=== PATIENT | female | born 1990 | race Hispanic/Latino ===

== ENCOUNTER 2021-09-21 08:41 | Inpatient (IN) | payer SELFPAY ==
[2021-09-21] MEDS ORDERED: SODIUM CHLORIDE 0.9% 1000 ML 1,000 ML IV ONE ×2 (08:53→21:51)
--- NOTE | 2021-09-21 08:56 | Emergency Department Report ---
ED N/V/D HPI - General Chief complaint: Nausea/Vomiting/Diarrhea Stated complaint: N/V,ABD PAIN,BLOOD SUGAR HIGH Time Seen by Provider: 09/21/21 08:52 Source: EMS Mode of arrival: Stretcher Limitations: No Limitations - History of Present Illness Initial comments: Patient presents by ambulance with nausea and vomiting. Her sugars have been out of control. She believes that she has DKA. EMS was called because of nausea and vomiting with elevated blood sugar. They arrived on scene and the patient did have a trash can field with yellow emesis. She was dry heaving. They got an Accu-Chek initially of 270 and then 570. Patient apparently was admitted at a hospital in [place] with DKA on 10 September. Patient states that this feels like DKA. She has no chest pain. There is no back pain. There is no hematemesis or coffee-ground emesis. - Related Data Allergies Allergy/AdvReac Type Severity Reaction Status Date / Time No Known Allergies Allergy Verified 09/21/21 08:44 ED Review of Systems ROS: Stated complaint: N/V,ABD PAIN,BLOOD SUGAR HIGH Other details as noted in HPI ED Physical Exam - General Limitations: No Limitations ED Course Vital Signs 09/21/21 08:42 Pulse Rate 60 Blood Pressure 140/80 [Left] O2 Sat by Pulse 97 Oximetry - Reevaluation(s) Reevaluation #1: 09/21/21 08:50 EMS was met upon arrival. IV and labs were ordered. Accu-Chek was ordered. Patient likely has DKA. Old records reviewed. Reevaluation #2: 09/21/21 11:25 Labs are noted. Insulin drip was started. Dr. St was notified for admission. ED Medical Decision Making - Lab Data Result diagrams: 09/21/21 09:38 09/21/21 09:38 Rhythm strip: Sinus tachycardia without ectopy. Monitor observe 10 seconds. - Medical Decision Making Patient presents with altered mental status, nausea, vomiting, and concern for DKA. She does have a known history of diabetes and had a recent admission in a different state for DKA. She was hyperglycemic. She was acidotic. There was a large anion gap. This is consistent with DKA. She has been aggressively treated. She will undergo admission. She does have hyperkalemia with an acute kidney injury. Critical Care Time: Yes (45 minutes exclusive of all procedures) Critical care attestation.: If time is entered above; I have spent that time in minutes in the direct care of this critically ill patient, excluding procedure time. ED Disposition Clinical Impression: AMARJIT (acute kidney injury) DKA (diabetic ketoacidosis) Qualifiers: Diabetes mellitus type: type 1 Nausea & vomiting Qualifiers: Vomiting type: unspecified Qualified Code(s): R11.2 - Nausea with vomiting, unspecified Disposition: 09 ADMITTED INPATIENT Is pt being admited?: Yes Condition: Stable Instructions: Diabetic Ketoacidosis (ED)
[2021-09-21 10:38] LABS: Mean Corpuscular HGB Conc 29 % (30-34); Mean Corpuscular Volume 84 fl (79-97); Platelet Count 276 K/mm3 (140-440); Red Blood Count 5.96 M/mm3 (3.65-5.03); Red Cell Distribution Width 18.2 % (13.2-15.2)
[2021-09-21 10:40] LABS: Hematocrit 50.3 % (30.3-42.9); Hemoglobin 14.4 gm/dl (10.1-14.3)
[2021-09-21 10:57] LABS: Calcium 9.4 mg/dL (8.4-10.2)
[2021-09-21] MEDS ORDERED: ALBUTEROL 2.5 MG/3 ML NEBU IH ONE (11:02)
[2021-09-21] MEDS ORDERED: DEXTROSE 50% IN WATER (25GM) 50 ML SYRINGE IV PRN (11:24)
[2021-09-21] MEDS ORDERED: INSULIN REGULAR, HUMAN 100 UNITS in SODIUM CHLORIDE 0.9% 99 ML IV SCH (12:00)
[2021-09-21 12:20] LABS: Band Neutrophils # (Manual) 0.2 K/mm3; Basophils % (Manual) 0 % (0.0-1.8); Platelet Estimate Consistent w Auto; RBC Morphology Normal; Total Cells Counted 100
[2021-09-21] MEDS ORDERED: fentaNYL 100 MCG/2 ML INJ IV ONE (12:22)
--- NOTE | 2021-09-21 12:46 | History and Physical Report ---
History of Present Illness Chief complaint: I do not feel good History of present illness: 31 YO Female with DM, Medication Noncompliance presents to ED for evaluation. Patient reports "I feel sick". Patient has dementia And provides minimal history. Patient reports that she has experienced nausea, multiple episodes of vomiting, diminished oral intake over the past 2 days, loss of sense of smell, loss of sense of taste, body aches, as well as known exposure to COVID-19. Patient acknowledges shortness of breath. EMS was notified and upon arrival the patient was found to be in distress and subsequent transported outside further care and evaluation of the aforementioned symptoms. The patient was seen and ev aluated in the emergency department. All lab and imaging studies reviewed. The patient was found to have DKA, sepsis suspected secondary to coronavirus infection. Patient admitted to ICU and initiated on DKA protocol as well as sepsis protocol and coronavirus protocol. Patient denies body aches, but denies chest pain, palpitation, productive cough, skin rash, recent ill contacts. No prior admission for review. No medication listed at time of admission for reconciliation. Advanced care planning conducted in ED. Patient is not vaccinated against COVID-19. Past History Past Medical History: diabetes, other (See HPI) Past Surgical History: No surgical history, Other (Reviewed) Social history: single. denies: smoking, alcohol abuse, prescription drug abuse Family history: hypertension Medications and Allergies Allergies Allergy/AdvReac Type Severity Reaction Status Date / Time No Known Allergies Allergy Verified 09/21/21 08:44 Active Meds: Active Medications Dextrose (Dextrose 50% In Water (25gm) 50 Ml Syringe) 0 ml IV Q30MIN PRN; Protocol PRN Reason: Hypoglycemia Insulin Human Regular 100 (units/ Sodium Chloride) 100 mls @ 1 mls/hr IV TITR BLANK; Protocol Review of Systems ROS unobtainable: due to mental status Exam - Constitutional Vitals: Temp Pulse Resp BP Pulse Ox 60 140/80 97 09/21/21 08:42 09/21/21 08:42 09/21/21 08:42 General appearance: Present: mild distress - EENT Eyes: Present: PERRL ENT: hearing intact, clear oral mucosa, other (Oral mucosa dry) - Neck Neck: Present: supple, normal ROM - Respiratory Respiratory effort: labored Respiratory: bilateral: diminished - Cardiovascular Rhythm: other (Tachycardia) Heart Sounds: Present: S1 & S2. Absent: rub, click - Extremities Extremities: pulses symmetrical, No edema Peripheral Pulses: abnormal (Capillary refill greater than 3.5 seconds) - Abdominal General gastrointestinal: Present: soft, non-tender, non-distended, normal bowel sounds Female genitourinary: Present: normal - Integumentary Integumentary: Present: dry, clammy, decreased turgor - Musculoskeletal Musculoskeletal: generalized weakness - Psychiatric Psychiatric: no appropriate mood/affect, no intact judgment & insight - Neurologic Neurologic: CNII-XII intact, moves all extremities, no gait normal Results - Labs CBC & Chem 7: 09/21/21 09:38 09/21/21 13:05 Labs: Abnormal lab results 09/21/21 09/21/21 09/21/21 Range/Units 09:38 09:38 09:38 WBC 24.6 H (4.5-11.0) K/mm3 RBC 5.96 H (3.65-5.03) M/mm3 Hgb 14.4 H (10.1-14.3) gm/dl Hct 50.3 H (30.3-42.9) % MCH 24 L (28-32) pg MCHC 29 L (30-34) % RDW 18.2 H (13.2-15.2) % Seg Neuts % (Manual) 86.0 H (40.0-70.0) % Lymphocytes % (Manual) 10.0 L (13.4-35.0) % Seg Neutrophils # Man 21.2 H (1.8-7.7) K/mm3 VBG pH 7.003 L* (7.320-7.420) Sodium 128 L (137-145) mmol/L Potassium 6.0 H (3.6-5.0) mmol/L Chloride 81.9 L (98-107) mmol/L Carbon Dioxide 5 L* (22-30) mmol/L BUN 37 H (7-17) mg/dL Creatinine 1.4 H (0.6-1.2) mg/dL Glucose 733 H* (65-100) mg/dL POC Glucose (70-105) mg/dL 09/21/21 Range/Units 12:19 WBC (4.5-11.0) K/mm3 RBC (3.65-5.03) M/mm3 Hgb (10.1-14.3) gm/dl Hct (30.3-42.9) % MCH (28-32) pg MCHC (30-34) % RDW (13.2-15.2) % Seg Neuts % (Manual) (40.0-70.0) % Lymphocytes % (Manual) (13.4-35.0) % Seg Neutrophils # Man (1.8-7.7) K/mm3 VBG pH (7.320-7.420) Sodium (137-145) mmol/L Potassium (3.6-5.0) mmol/L Chloride (98-107) mmol/L Carbon Dioxide (22-30) mmol/L BUN (7-17) mg/dL Creatinine (0.6-1.2) mg/dL Glucose (65-100) mg/dL POC Glucose > 600 H (70-105) mg/dL Assessment and Plan - Patient Problems (1) Sepsis Current Visit: Yes Status: Acute Plan to address problem: Sepsis protocol: CBC, CMP, IV fluid resuscitation therapy, IV antibiotic therapy, supplemental oxygen, pulse oximetry, maintain mean arterial pressure greater than or equal to 65, monitor fluid balance, chest x-ray, blood cultures, (2) Suspected 2019 novel coronavirus infection Current Visit: Yes Status: Acute Plan to address problem: Coronavirus protocol: Vitamin C therapy, vitamin D therapy, zinc therapy, IV antibiotic therapy, IV steroid therapy (3) COVID-19 vaccination not done Current Visit: Yes Status: Acute Plan to address problem: Patient counseled. (4) AMARJIT (acute kidney injury) Current Visit: Yes Status: Acute Plan to address problem: BMP, IV fluid resuscitation therapy, repeat BMP in a.m. to monitor serum creatinine as well as GFR. (5) DKA (diabetic ketoacidosis) Current Visit: Yes Status: Acute Qualifiers: Diabetes mellitus type: type 1 Plan to address problem: DKA protocol: IV fluid resuscitation therapy, insulin drip, serial BMP, monitor anion gap, potassium repletion as per protocol: Monitor fluid balance. (6) Toxic metabolic encephalopathy Current Visit: Yes Status: Acute Plan to address problem: Treat sepsis, IV fluid resuscitation therapy, supportive care. (7) DVT prophylaxis Current Visit: Yes Status: Acute Plan to address problem: SCD to bilateral lower extremities while in bed, prophylactic anticoagulation (8) Advance care planning Current Visit: Yes Status: Acute Plan to address problem: Disease education conducted, care plan discussed, diagnosis discussed, prognosis discussed. Patient is full code, +30 minutes.
[2021-09-21] MEDS ORDERED: SODIUM CHLORIDE 0.9% 1000 ML 1,000 ML IV SCH (13:00)
--- NOTE | 2021-09-21 13:28 | XRay Report ---
CHEST 1 VIEW 09/21/2021 12:54 PM INDICATION / CLINICAL INFORMATION: Cough. COMPARISON: None available. FINDINGS: SUPPORT DEVICES: None. HEART / MEDIASTINUM: The heart size and pulmonary vasculature are normal. LUNGS / PLEURA: No significant pulmonary or pleural abnormality. No pneumothorax. ADDITIONAL FINDINGS: No significant additional findings. IMPRESSION: No acute findings. Signer Name: Dada Moreland MD Signed: 09/21/2021 1:23 PM Workstation Name: [id number]
[2021-09-21] MEDS ORDERED: SODIUM BICARB 8.4% 50 MEQ/50 ML SYRINGE IV NR (13:30)
[2021-09-21] MEDS ORDERED: HYDROmorphone 1 MG/1 ML INJ IV PRN (13:30)
[2021-09-21] MEDS ORDERED: oxyCODONE /ACETAMINOPHEN 5-325MG TAB PO PRN (13:30)
[2021-09-21] MEDS ORDERED: SODIUM CHLORIDE 0.9% 1000 ML IV SOLN IV NR (13:30)
[2021-09-21] MEDS ORDERED: ACETAMINOPHEN 325 MG TAB PO PRN ×2 (14:00)
[2021-09-21 14:06] LABS: Calcium 7.9 mg/dL (8.4-10.2)
[2021-09-21] MEDS: methylPREDNISolone Sod Succinate 40 MG/1 ML INJ IV SCH ×2 (15:17→23:34)
[2021-09-21] MEDS: cefTRIAXone/NS 2 GM/100 ML 2 GM/100 ML BAG IV SCH (15:18)
[2021-09-21] MEDS: AZITHROMYCIN/NS 500 MG/250 ML 500 MG/250 ML BAG IV SCH (15:18)
[2021-09-21 16:59] LABS: Calcium 7.6 mg/dL (8.4-10.2)
[2021-09-21 17:02] LABS: C-Reactive Protein 0.1 mg/dL (0.00-1.30)
[2021-09-21] MEDS ORDERED: SODIUM BICARB 8.4% 50 MEQ/50 ML SYRINGE IV ONE ×2 (17:09→18:44)
[2021-09-21 19:02] LABS: Calcium 7.5 mg/dL (8.4-10.2)
[2021-09-21 20:38] LABS: Calcium 7.6 mg/dL (8.4-10.2)
[2021-09-21 22:44] LABS: Bacteria,Urine 1+ /HPF (Negative); Bilirubin,Urine NEG (Negative); Blood,Urine SM (Negative); Color,Urine Straw (Yellow); Hyaline Casts,Urine 2 /LPF; Mucus,Urine FEW /HPF; Urobilinogen,Urine < 2.0 mg/dL (<2.0)
[2021-09-21] MEDS ORDERED: methylPREDNISolone Sod Succinate 125 MG/2 ML INJ ONE (23:22)
[2021-09-21] MEDS: HEPARIN 5,000 UNIT/1 ML VIAL SUB-Q SCH (23:33)
[2021-09-21] MEDS: ZINC SULFATE 220 MG CAP PO SCH (23:34)
[2021-09-21] MEDS: ONDANSETRON 4 MG/2 ML INJ IV PRN (23:34)
[2021-09-21] MEDS: ASCORBIC ACID 500 MG TAB PO SCH (23:34)
[2021-09-21] MEDS: HYDROmorphone 1 MG/1 ML INJ IV PRN (23:34)
[2021-09-22] MEDS: D5W/0.45% NACL/KCL 20 MEQ 20 MEQ/1,000 ML BAG IV SCH ×2 (02:29→06:52)
[2021-09-22 06:36] LABS: BUN/Creatinine Ratio 31; Blood Urea Nitrogen 25 mg/dL (7-17); Calcium 7.7 mg/dL (8.4-10.2); Hemolysis Index 3
[2021-09-22] MEDS: methylPREDNISolone Sod Succinate 40 MG/1 ML INJ IV SCH (06:53)
[2021-09-22] MEDS ORDERED: INSULIN GLARGINE 100 UNITS/ML SUB-Q NR (08:39)
[2021-09-22] MEDS ORDERED: DEXTROSE 50% IN WATER (25GM) 50 ML SYRINGE IV PRN (09:00)
[2021-09-22] MEDS: ONDANSETRON 4 MG/2 ML INJ IV PRN (09:13)
[2021-09-22] MEDS ORDERED: METOCLOPRAMIDE 10 MG/2 ML INJ IV PRN (09:30)
[2021-09-22] MEDS: HEPARIN 5,000 UNIT/1 ML VIAL SUB-Q SCH ×2 (10:10→22:49)
[2021-09-22] MEDS: ASCORBIC ACID 500 MG TAB PO SCH ×2 (10:12→23:19)
[2021-09-22] MEDS: ZINC SULFATE 220 MG CAP PO SCH ×2 (10:12→23:19)
[2021-09-22 11:57] LABS: Blood Urea Nitrogen 21 mg/dL (7-17); Hemolysis Index 0
[2021-09-22 12:00] LABS: BUN/Creatinine Ratio 30
[2021-09-22] MEDS: SUCRALFATE 1 GM/10 ML ORAL LIQD PO SCH ×3 (12:05→22:49)
[2021-09-22] MEDS: CHOLECALCIFEROL (VIT D3) 400 UNIT TAB PO SCH (12:53)
[2021-09-22] MEDS: INSULIN LISPRO 100 UNIT/ML SUB-Q SCH ×3 (12:59→23:18)
--- NOTE | 2021-09-22 13:17 | Progress Note ---
Assessment and Plan Assessment and plan: History of present illness: 31 YO Female with DM, Medication Noncompliance presents to ED for evaluation. Patient reports "I feel sick". Patient has dementia And provides minimal history. Patient reports that she has experienced nausea, multiple episodes of vomiting, diminished oral intake over the past 2 days, loss of sense of smell, loss of sense of taste, body aches, as well as known exposure to COVID-19. Patient acknowledges shortness of breath. EMS was notified and upon arrival the patient was found to be in distress and subsequent transported outside further care and evaluation of the aforementioned symptoms. The patient was seen and evaluated in the emergency department. All lab and imaging studies reviewed. The patient was found to have DKA, sepsis suspected secondary to coronavirus infection. Patient admitted to ICU and initiated on DKA protocol as well as sepsis protocol and coronavirus protocol. Patient denies body aches, but denies chest pain, palpitation, productive cough, skin rash, recent ill contacts. No prior admission for review. No medication listed at time of admission for reconciliation. Advanced care planning conducted in ED. Patient is not vaccinated against COVID-19. Hospital Course: 09/22/2021: D/c insulin gtt, start subq insulin. Start diabetic diet. Lantus 15 units qhs initiated, Insulin R 5 units achs, SSI. Added sucralfate and reglan as i suspect patient has gastroparesis. COVID 19 pcr pending- d/c steroids as patient is on room air no indication. Trasnfer to floor Assessment and Plan: (1) Sepsis Current Visit: Yes Status: Acute Plan to address problem: Sepsis protocol: CBC, CMP, IV fluid resuscitation therapy, IV antibiotic therapy, , pulse oximetry, maintain mean arterial pressure greater than or equal to 65, monitor fluid balance, chest x-ray, blood cultures, Currently on room air. (2) Suspected 2019 novel coronavirus infection Current Visit: Yes Status: Acute Plan to address problem: Coronavirus protocol: Vitamin C therapy, vitamin D therapy, zinc therapy, IV antibiotic therapy, IV steroid therapy (3) COVID-19 vaccination not done Current Visit: Yes Status: Acute Plan to address problem: Patient counseled. (4) AMARJIT (acute kidney injury) Current Visit: Yes Status: Acute Plan to address problem: BMP, IV fluid resuscitation therapy, repeat BMP in a.m. to monitor serum crea tinine as well as GFR. (5) DKA (diabetic ketoacidosis) Current Visit: Yes Status: Acute Qualifiers: Diabetes mellitus type: type 1 Plan to address problem: dc DKA protocol: IV fluid resuscitation therapy, insulin drip, serial BMP, monitor anion gap, potassium repletion as per protocol: Monitor fluid balance. (6) Type 1 diabetes with hyperglycemia Lantus 15 units qhs initiated, Insulin R 5 units achs, SSI. (7)Gastroparesis Ordered reglan/zofran/sucralfate. (8) Toxic metabolic encephalopathy Current Visit: Yes Status: Acute Plan to address problem: Treat sepsis, IV fluid resuscitation therapy, supportive care. (9) DVT prophylaxis Current Visit: Yes Status: Acute Plan to address problem: SCD to bilateral lower extremities while in bed, prophylactic anticoagulation (10) Advance care planning Current Visit: Yes Status: Acute Plan to address problem: Disease education conducted, care plan discussed, diagnosis discussed, prognosis discussed. Patient is full code, +30 minutes. History Interval history: No acute complaints on my encounter. Hospitalist Physical - Physical exam Narrative exam: General appearance: Present: NAD - EENT Eyes: Present: PERRL ENT: hearing intact, clear oral mucosa, - Neck Neck: Present: supple, normal ROM - Respiratory Respiratory effort: labored Respiratory: bilateral: diminished - Cardiovascular Rhythm: other (Tachycardia) Heart Sounds: Present: S1 & S2. Absent: rub, click - Extremities Extremities: pulses symmetrical, No edema Peripheral Pulses: abnormal (Capillary refill greater than 3.5 seconds) - Abdominal General gastrointestinal: Present: soft, non-tender, non-distended, normal bowel sounds Female genitourinary: Present: normal - Integumentary Integumentary: Present: dry, clammy, decreased turgor (improved) - Musculoskeletal Musculoskeletal: generalized weakness - Psychiatric Psychiatric: no appropriate mood/affect, no intact judgment & insight - Neurologic Neurologic: CNII-XII intact, moves all extremities, no gait normal - Constitutional Vitals: Temp Pulse Resp BP Pulse Ox 99.4 F 110 H 16 168/104 99 09/21/21 20:32 09/22/21 07:45 09/22/21 09:12 09/22/21 09:31 09/22/21 09:31 General appearance: Present: mild distress Results - Labs CBC & Chem 7: 09/21/21 09:38 09/22/21 10:52 Labs: Laboratory Last Values WBC 24.6 K/mm3 (4.5-11.0) H 09/21/21 09:38 RBC 5.96 M/mm3 (3.65-5.03) H 09/21/21 09:38 Hgb 14.4 gm/dl (10.1-14.3) H 09/21/21 09:38 Hct 50.3 % (30.3-42.9) H 09/21/21 09:38 MCV 84 fl (79-97) 09/21/21 09:38 MCH 24 pg (28-32) L 09/21/21 09:38 MCHC 29 % (30-34) L 09/21/21 09:38 RDW 18.2 % (13.2-15.2) H 09/21/21 09:38 Plt Count 276 K/mm3 (140-440) 09/21/21 09:38 Add Manual Diff Complete 09/21/21 09:38 Total Counted 100 09/21/21 09:38 Seg Neuts % (Manual) 86.0 % (40.0-70.0) H 09/21/21 09:38 Band Neutrophils % 1.0 % 09/21/21 09:38 Lymphocytes % (Manual) 10.0 % (13.4-35.0) L 09/21/21 09:38 Reactive Lymphs % (Man) 0 % 09/21/21 09:38 Monocytes % (Manual) 1.0 % (0.0-7.3) 09/21/21 09:38 Eosinophils % (Manual) 1.0 % (0.0-4.3) 09/21/21 09:38 Basophils % (Manual) 0 % (0.0-1.8) 09/21/21 09:38 Metamyelocytes % 1.0 % 09/21/21 09:38 Myelocytes % 0 % 09/21/21 09:38 Promyelocytes % 0 % 09/21/21 09:38 Blast Cells % 0 % 09/21/21 09:38 Nucleated RBC % Not Reportable 09/21/21 09:38 Seg Neutrophils # Man 21.2 K/mm3 (1.8-7.7) H 09/21/21 09:38 Band Neutrophils # 0.2 K/mm3 09/21/21 09:38 Lymphocytes # (Manual) 2.5 K/mm3 (1.2-5.4) 09/21/21 09:38 Abs React Lymphs (Man) 0.0 K/mm3 09/21/21 09:38 Monocytes # (Manual) 0.2 K/mm3 (0.0-0.8) 09/21/21 09:38 Eosinophils # (Manual) 0.2 K/mm3 (0.0-0.4) 09/21/21 09:38 Basophils # (Manual) 0.0 K/mm3 (0.0-0.1) 09/21/21 09:38 Metamyelocytes # 0.2 K/mm3 09/21/21 09:38 Myelocytes # 0.0 K/mm3 09/21/21 09:38 Promyelocytes # 0.0 K/mm3 09/21/21 09:38 Blast Cells # 0.0 K/mm3 09/21/21 09:38 WBC Morphology Not Reportable 09/21/21 09:38 Hypersegmented Neuts Not Reportable 09/21/21 09:38 Hyposegmented Neuts Not Reportable 09/21/21 09:38 Hypogranular Neuts Not Reportable 09/21/21 09:38 Smudge Cells Not Reportable 09/21/21 09:38 Toxic Granulation Not Reportable 09/21/21 09:38 Toxic Vacuolation Not Reportable 09/21/21 09:38 Dohle Bodies Not Reportable 09/21/21 09:38 Pelger-Huet Anomaly Not Reportable 09/21/21 09:38 Josiah Rods Not Reportable 09/21/21 09:38 Platelet Estimate Consistent w auto 09/21/21 09:38 Clumped Platelets Not Reportable 09/21/21 09:38 Plt Clumps, EDTA Not Reportable 09/21/21 09:38 Large Platelets Not Reportable 09/21/21 09:38 Giant Platelets Not Reportable 09/21/21 09:38 Platelet Satelliting Not Reportable 09/21/21 09:38 Plt Morphology Comment Not Reportable 09/21/21 09:38 RBC Morphology Normal 09/21/21 09:38 Dimorphic RBCs Not Reportable 09/21/21 09:38 Polychromasia Not Reportable 09/21/21 09:38 Hypochromasia Not Reportable 09/21/21 09:38 Poikilocytosis Not Reportable 09/21/21 09:38 Anisocytosis Not Reportable 09/21/21 09:38 Microcytosis Not Reportable 09/21/21 09:38 Macrocytosis Not Reportable 09/21/21 09:38 Spherocytes Not Reportable 09/21/21 09:38 Pappenheimer Bodies Not Reportable 09/21/21 09:38 Sickle Cells Not Reportable 09/21/21 09:38 Target Cells Not Reportable 09/21/21 09:38 Tear Drop Cells Not Reportable 09/21/21 09:38 Ovalocytes Not Reportable 09/21/21 09:38 Helmet Cells Not Reportable 09/21/21 09:[address] [place] Don[place] Bodies Not Reportable 09/21/21 09:38 [place] Rings Not Reportable 09/21/21 09:38 [place] Cells Not Reportable 09/21/21 09:38 Bite Cells Not Reportable 09/21/21 09:38 Crenated Cell Not Reportable 09/21/21 09:38 Elliptocytes Not Reportable 09/21/21 09:38 Acanthocytes (Spur) Not Reportable 09/21/21 09:38 Rouleaux Not Reportable 09/21/21 09:38 Hemoglobin C Crystals Not Reportable 09/21/21 09:38 Schistocytes Not Reportable 09/21/21 09:38 Malaria parasites Not Reportable 09/21/21 09:38 Paul Bodies Not Reportable 09/21/21 09:38 Hem Pathologist Commnt No 09/21/21 09:38 D-Dimer 384.95 ng/mlDDU (0-234) H 09/21/21 16:09 ABG pH 7.499 (7.320-7.450) H 09/21/21 22:20 POC ABG pCO2 25.2 mmHg (32.0-48.0) L 09/21/21 22:20 POC ABG pO2 108.3 mmHg (83-108) H 09/21/21 22:20 POC ABG HCO3 19.2 09/21/21 22:20 ABG O2 Saturation 98.2 (0-100) 09/21/21 22:20 POC ABG Base Excess -2.8 09/21/21 22:20 ABG Hemoglobin 10.90 (12.0-17.5) L 09/21/21 22:20 ABG Oxyhemoglobin 96.3 (94-98) 09/21/21 22:20 ABG Methemoglobin 0.6 (0.0-1.5) 09/21/21 22:20 VBG pH 7.003 (7.320-7.420) L* 09/21/21 09:38 Carboxyhemoglobin 1.4 (0.5-1.5) 09/21/21 22:20 FiO2 % 21 09/21/21 22:20 Sodium 135 mmol/L (137-145) L 09/22/21 10:52 Potassium 3.9 mmol/L (3.6-5.0) 09/22/21 10:52 Chloride 101.2 mmol/L (98-107) 09/22/21 10:52 Carbon Dioxide 21 mmol/L (22-30) L 09/22/21 10:52 Anion Gap 17 mmol/L 09/22/21 10:52 BUN 21 mg/dL (7-17) H 09/22/21 10:52 Creatinine 0.7 mg/dL (0.6-1.2) 09/22/21 10:52 Estimated GFR > 60 ml/min 09/22/21 10:52 BUN/Creatinine Ratio 30 % 09/22/21 10:52 Glucose 221 mg/dL (65-100) H 09/22/21 10:52 POC Glucose 302 mg/dL (70-105) H 09/22/21 12:49 Ketones Quantitative Moderate (Negative) 09/21/21 09:38 Lactic Acid 1.80 mmol/L (0.7-2.0) 09/21/21 18:15 Calcium 8.0 mg/dL (8.4-10.2) L 09/22/21 10:52 Phosphorus 7.90 mg/dL (2.5-4.5) H 09/21/21 13:05 Magnesium 2.10 mg/dL (1.7-2.3) 09/21/21 13:05 Lactate Dehydrogenase 211 units/L (91-180) H 09/21/21 16:09 C-Reactive Protein 0.10 mg/dL (0.00-1.30) 09/21/21 16:09 HCG, Qual Negative (Negative) 09/21/21 09:38 Urine Color Straw (Yellow) 09/21/21 22: Urine Turbidity Clear (Clear) 09/21/21 22: Urine pH 5.0 (5.0-7.0) 09/21/21 22:23 Ur Specific [place] 1.018 (1.003-1.030) 09/21/21 22: Urine Protein 30 mg/dl mg/dL (Negative) 09/21/21 22: Urine Glucose (UA) >=500 mg/dL (Negative) 09/21/21 22: Urine Ketones 80 mg/dL (Negative) 09/21/21 22: Urine Blood Sm (Negative) 09/21/21 22: Urine Nitrite Neg (Negative) 09/21/21 22: Urine Bilirubin Neg (Negative) 09/21/21 22: Urine Urobilinogen < 2.0 mg/dL (<2.0) 09/21/21 22: Ur Leukocyte Esterase Neg (Negative) 09/21/21 22:23 Urine WBC (Auto) 2.0 /HPF (0.0-6.0) 09/21/21 22: Urine RBC (Auto) 2.0 /HPF (0.0-6.0) 09/21/21 22: U Epithel Cells (Auto) 2.0 /HPF (0-13.0) 09/21/21 22:23 Urine Bacteria (Auto) 1+ /HPF (Negative) 09/21/21 22: Hyaline Casts 2 /LPF 09/21/21 22:23 Urine Mucus Few /HPF 09/21/21 22:23 Urine Yeast (Budding) Few /HPF 09/21/21 22:23 Blood Type O POSITIVE 09/21/21 13:20 Antibody Screen Negative 09/21/21 13:20 Microbiology: Microbiology 09/21/21 13:05 Peripheral/Venous Blood Culture - Preliminary Culture in Progress 09/21/21 13:05 Peripheral/Venous Blood Culture - Preliminary Culture in Progress Active Medications - Current Medications Current Medications: Generic Name Dose Route Start Last Admin Trade Name Freq PRN Reason Stop Dose Admin Acetaminophen 650 mg 09/21/21 14:00 Acetaminophen 325 Mg Tab PO Q6H PRN Pain MILD(1-3)/Fever >100.5/SORENSON Ascorbic Acid 500 mg 09/21/21 22:00 09/22/21 10:12 Ascorbic Acid 500 Mg Tab PO 500 mg BID BLANK Administration Cholecalciferol 1,000 unit 09/22/21 10:00 09/22/21 12:53 Cholecalciferol (Vit D3) 400 Unit Tab PO 1,000 unit QDAY BLANK Administration Dextrose 50 ml 09/22/21 09:00 Dextrose 50% In Water (25gm) 50 Ml Syringe IV Q30MIN PRN Hypoglycemia Protocol Heparin Sodium (Porcine) 5,000 unit 09/21/21 22:00 09/22/21 10:10 Heparin 5,000 Unit/1 Ml Vial SUB-Q 5,000 unit Q12HR BLANK Administration Hydromorphone HCl 0.25 mg 09/21/21 13:30 09/21/21 23:34 Hydromorphone 1 Mg/1 Ml Inj IV 0.25 mg Q4H PRN Administration Pain, Moderate (4-6) Hydromorphone HCl 0.5 mg 09/21/21 13:30 09/22/21 09:12 Hydromorphone 1 Mg/1 Ml Inj IV 0.5 mg Q23H PRN Administration Pain , Severe (7-10) Insulin Human Regular 100 100 mls @ 1 mls/hr 09/21/21 12:00 09/22/21 07:40 units/ Sodium Chloride IV Infused TITR BLANK Titration Protocol 1 UNITS/HR Ceftriaxone Sodium 2 gm in 100 mls @ 200 mls/hr 09/21/21 15:00 09/21/21 17:26 Rocephin/Ns 2 Gm/100 Ml IV Infused Q24H BLANK Infusion Protocol Azithromycin 500 mg in 250 mls @ 250 mls/hr 09/21/21 14:00 09/21/21 17:26 Zithromax/Ns IV Infused Q24H BLANK Infusion Protocol Potassium Chloride/Dextrose/Sod Cl 20 meq in 1,000 mls @ 125 mls/hr 09/22/21 02:09 09/22/21 06:52 D5w/0.45% Nacl/Kcl 20 Meq IV Infused DIRECT BLANK Infusion Insulin Human Lispro 0 unit 09/22/21 11:30 09/22/21 12:59 Insulin Lispro 100 Unit/Ml SUB-Q 8 unit ACHS BLANK Administration Protocol Metoclopramide HCl 10 mg 09/22/21 09:30 Metoclopramide 10 Mg/2 Ml Inj IV Q6H PRN Nausea And Vomiting Ondansetron HCl 4 mg 09/21/21 22:50 09/22/21 09:13 Ondansetron 4 Mg/2 Ml Inj IV 4 mg Q4H PRN Administration Nausea And Vomiting Oxycodone/Acetaminophen 1 tab 09/21/21 13:30 Oxycodone /Acetaminophen 5-325mg Tab PO Q16H PRN Pain, Moderate (4-6) Sodium Chloride 10 ml 09/21/21 22:00 09/22/21 10:13 Sodium Chloride 0.9% 10 Ml Flush Syringe IV 10 ml BID BLANK Administration Sodium Chloride 10 ml 09/21/21 13:30 Sodium Chloride 0.9% 10 Ml Flush Syringe IV PRN PRN LINE FLUSH Sucralfate 1 gm 09/22/21 11:30 Sucralfate 1 Gm/10 Ml Oral Liqd PO ACHS BLANK Zinc Sulfate 220 mg 09/21/21 22:00 09/22/21 10:12 Zinc Sulfate 220 Mg Cap PO 220 mg BID BLANK Administration Nutrition/Malnutrition Assess - Dietary Evaluation Nutrition/Malnutrition Findings: Nutrition Notes Start: 09/21/21 11:45 Freq: Status: Active Protocol: Document 09/21/21 18:47 JOHN PAUL (Rec: 09/21/21 18:51 JOHN PAUL [id number]) Nutrition Notes Need for Assessment generated from: MD Order,Education Initial or Follow up Brief Note Current Diet NPO (since 09/21 12:49). Height 5 ft 4 in Weight 54.431 kg [place] Body Weight (kg) 54.54 BMI 20.5 Weight change and time frame None reported at admission. Weight Status Appropriate Subjective/Other Information RD consult for Nutrition Education. Pt still on ED, not a candidate for Nutrition Education at the time, will assess feasibility on F/U. Percent of energy/protein needs met: Pt currently on NPO. Nutrition Intervention Follow-Up By: 09/27/21 Additional Comments Nutrition education will be provided on F/U if feasible. When pertinent, monitor food tolerance, %PO intake of meals , and BM.
--- NOTE | 2021-09-22 13:18 | Event Note ---
Date: 09/22/21 anion gap is closed. Please transition to long acting insulin and feed patient. check A1c Diabetic education Hopeful discharge soon, as early as today.
[2021-09-22] MEDS: AZITHROMYCIN/NS 500 MG/250 ML 500 MG/250 ML BAG IV SCH (15:31)
[2021-09-22] MEDS: cefTRIAXone/NS 2 GM/100 ML 2 GM/100 ML BAG IV SCH (17:34)
[2021-09-22] MEDS: INSULIN REGULAR, HUMAN 100 UNITS/1 ML SUB-Q SCH ×2 (17:35→23:18)
[2021-09-22] MEDS ORDERED: INSULIN GLARGINE 100 UNITS/ML SUB-Q SCH (22:00)
[2021-09-22] MEDS: HYDROmorphone 1 MG/1 ML INJ IV PRN (22:49)
[2021-09-23 04:56] LABS: Blood Urea Nitrogen 13 mg/dL (7-17); Calcium 7.8 mg/dL (8.4-10.2); Hemolysis Index 1
[2021-09-23 04:59] LABS: BUN/Creatinine Ratio 26
[2021-09-23] MEDS: INSULIN LISPRO 100 UNIT/ML SUB-Q SCH ×2 (08:26→12:43)
[2021-09-23] MEDS: INSULIN REGULAR, HUMAN 100 UNITS/1 ML SUB-Q SCH ×2 (08:26→12:43)
[2021-09-23] MEDS ORDERED: POTASSIUM CHLORIDE ER 20 MEQ TAB PO SCH (09:00)
[2021-09-23] MEDS: SUCRALFATE 1 GM/10 ML ORAL LIQD PO SCH ×2 (10:23→12:43)
[2021-09-23] MEDS: HEPARIN 5,000 UNIT/1 ML VIAL SUB-Q SCH (10:24)
[2021-09-23] MEDS: ASCORBIC ACID 500 MG TAB PO SCH (10:24)
[2021-09-23] MEDS: ZINC SULFATE 220 MG CAP PO SCH (10:25)
[2021-09-23] MEDS: CHOLECALCIFEROL (VIT D3) 400 UNIT TAB PO SCH (10:25)
--- NOTE | 2021-09-23 11:13 | Discharge Summary ---
Providers - Providers Date of Admission: 09/21/21 12:48 Date of discharge: 09/23/21 Attending physician: JAK HELM MD 09/21/21 11:24 Consult to Dietitian/Nutrition [CONS] Routine Physician Instructions: Reason For Exam: DKA Reason for Consult: Nutrition Recommendations Reason for Consult: Diet education 09/21/21 14:56 Consult to Physician [CONS] Routine Comment: Consulting Provider: YI NAYAK Physician Instructions: Reason For Exam: dka,pui Primary care physician: HUB CUTTER Hospitalization Reason for admission: Diabetic ketoacidosis Condition: Stable Pertinent studies: Reviewed. Procedures: None. Hospital course: The patient is a 31-year-old female with past medical history of insulin- dependent type 1 diabetes mellitus with possible gastroparesis who presented with nausea, vomiting, decreased oral intake, loss of smell, loss of taste, myalgias, known exposure to COVID-19, and acute metabolic encephalopathy who was found to be in DKA in the emergency department. The patient was initiated on insulin drip and eventually transition to subcutaneous insulin. The patient was counseled about the importance of medication adherence, and she expressed understanding. The patient was also counseled about utilizing clinical pharmacy to assist with uptitrating her insulin requirements if her blood glucose is not being controlled at home appropriately. The patient will be referred to a primary care provider for further management. The patient presented with an AMARJIT that has since resolved after appropriate fluid administration. The patient was also found to be positive for COVID-19; however, the patient does not require steroids or remdesivir as she is saturating well on room air. The patient expresses understanding. Patient is medically clear for discharge. Disposition: 01 HOME / SELF CARE / HOMELESS Final Discharge Diagnosis (Prints w/discharge instructions): Diabetic ketoacidosis, COVID-19 infection, AMARJIT, insulin-dependent type 1 diabetes mellitus, gastroparesis, acute metabolic encephalopathy Time spent for discharge: 45 min Core Measure Documentation - Palliative Care Palliative Care/ Comfort Measures: Not Applicable - Core Measures Any of the following diagnoses?: none Exam - Constitutional Vitals: Temp Pulse Resp BP Pulse Ox 99.4 F 106 H 10 L 132/83 100 09/21/21 20:32 09/23/21 10:00 09/23/21 10:00 09/23/21 10:00 09/23/21 10:00 General appearance: Present: no acute distress, well-nourished - EENT Eyes: Present: PERRL, EOM intact ENT: hearing intact, clear oral mucosa, dentition normal - Neck Neck: Present: supple, normal ROM - Respiratory Respiratory effort: normal Respiratory: bilateral: CTA - Cardiovascular Rhythm: regular Heart Sounds: Present: S1 & S2 - Extremities Extremities: no ischemia, pulses intact, pulses symmetrical, No edema, normal temperature, normal color, Full ROM Peripheral Pulses: within normal limits - Abdominal General gastrointestinal: Present: soft, non-tender, non-distended, normal bowel sounds Female genitourinary: Present: deferred - Rectal Rectal Exam: deferred - Integumentary Integumentary: Present: clear, warm, dry - Musculoskeletal Musculoskeletal: strength equal bilaterally - Psychiatric Psychiatric: appropriate mood/affect, intact judgment & insight, memory intact, cooperative - Neurologic Neurologic: CNII-XII intact, moves all extremities - Allied Health Allied health notes reviewed: nursing Plan Activity: no restrictions Diet: diabetic Additional Instructions: The patient is a 31-year-old female with past medical history of insulin-dependent type 1 diabetes mellitus with possible gastroparesis who presented with nausea, vomiting, decreased oral intake, loss of smell, loss of taste, myalgias, known exposure to COVID-19, and acute metabolic encephalopathy who was found to be in DKA in the emergency department. The patient was initiated on insulin drip and eventually transition to subcutaneous insulin. The patient was counseled about the importance of medication adherence, and she expressed understanding. The patient was also counseled about utilizing clinical pharmacy to assist with uptitrating her insulin requirements if her blood glucose is not being controlled at home appropriately. The patient will be referred to a primary care provider for further management. The patient presented with an AMARJIT that has since resolved after appropriate fluid administration. The patient was also found to be positive for COVID-19; however, the patient does not require steroids or remdesivir as she is saturating well on room air. The patient expresses understanding. Patient is medically clear for discharge. The patient will need to quarantine until 09/28/2021. Care Plan Goals: Patient is medically clear for discharge. Assessment: The patient is a 31-year-old female with past medical history of insulin- dependent type 1 diabetes mellitus with possible gastroparesis who presented with nausea, vomiting, decreased oral intake, loss of smell, loss of taste, myalgias, known exposure to COVID-19, and acute metabolic encephalopathy who was found to be in DKA in the emergency department. The patient was initiated on insulin drip and eventually transition to subcutaneous insulin. The patient was counseled about the importance of medication adherence, and she expressed understanding. The patient was also counseled about utilizing clinical pharmacy to assist with uptitrating her insulin requirements if her blood glucose is not being controlled at home appropriately. The patient will be referred to a primary care provider for further management. The patient presented with an AMARJIT that has since resolved after appropriate fluid administration. The patient was also found to be positive for COVID-19; however, the patient does not require steroids or remdesivir as she is saturating well on room air. The patient expresses understanding. Patient is medically clear for discharge. The patient will need to quarantine until 09/28/2021. Follow up with: ADOLFO WIN MD [Primary Care Provider] - 3-5 Days REBEL HAN MD [Staff Physician] - 14 Days Forms: Work/School Release Form Prescriptions: Insulin Regular, Human [HumuLIN R] 5 units SUB-Q ACHS #500 units
[2021-09-23 15:19] VITALS: BP 132/74
== END 2021-09-23 14:08 | disposition home or self-care (01) | DRG 871 ==
LOC: ED 08:41 → CC1 12:48 → 3A 09-22 13:23 → 4A 09-23 09:32
PROVIDERS: ADMIT Internal Medicine; ATTEND Student in an Organized Health Care Education/Training Program
DX: A41.9 Sepsis, unspecified organism (principal); E10.10 Type 1 diabetes mellitus with ketoacidosis without coma; G92.8 Other toxic encephalopathy; U07.1 COVID-19; N17.9 Acute kidney failure, unspecified; Z91.19 Patient's noncompliance with other medical treatment and regimen; E10.43 Type 1 diabetes mellitus with diabetic autonomic (poly)neuropathy; K31.84 Gastroparesis; Z82.49 Family history of ischemic heart disease and other diseases of the circulatory system
CPT/HCPCS: 36415; 71045; 80048; 81001; 82010; 82140; 82805; 82962; 83036; 83615; 83735; 84100; 84145; 84703; 85007; 85025; 85379; 86140; 86850; 86900; 86901; 87040; G0378; J3480; J3490; Q0162; Q9967; J0456; J0696; J1170; J1644; J1815; J2405; J2765; J2920; J2930; J3010; J7030; U0003